=== PATIENT | female | born 1975 | race Caucasian/White ===

== ENCOUNTER 2024-11-08 18:04 | Emergency (ER) | payer OTHER, SELFPAY ==
[2024-11-08 18:26] VITALS: BP 138/85; PULSE 103; TEMP 36.8; O2SAT 97; BMI 36.5
--- NOTE | 2024-11-08 18:32 | XR_ITS ---
The [address] [address] Patient Name: HAWA FELIX MRN: [id number] date: 1975 Sex: F Assigned Patient Location: ED.MAIN Current Patient Location: ED.MAIN Accession/Order Number: [id number] Exam Date: 11/09/2024 08:19 Report Date: 11/09/2024 08:23 At the request of: PAPO CAMPO MD Procedure: XR foot LT min 3V XR foot LT min 3V 11/08/2024 7:24 PM SIGNS AND SYMPTOMS: Left foot pain PROTOCOL: Frontal, lateral, and oblique radiographs of the left foot COMPARISON: None FINDINGS: There is narrowing of the first metatarsophalangeal joint. Erosive changes are noted along the medial margin of the head of the first metatarsal suspicious for a deposition arthropathy. Mild soft tissue swelling is noted diffusely. No fracture or dislocation. XR/XR foot LT min 3V IMPRESSION: No acute bony injury. Mild soft tissue swelling is noted diffusely. Erosive changes are noted along the medial margin of the head of the first metatarsal suspicious for a deposition arthropathy. Impression dictated by: Jt Brizuela M.D. 11/09/2024 8:23 AM Dictation Location: [employer] Electronically authenticated by: [id number] Y Date: 11/09/2024 08:23
--- NOTE | 2024-11-08 19:20 | ED.LOWEXI1 ---
HPI HPI - Extremity Injury (Lower) General Chief Complaint: Extremity Injury, Lower Stated Complaint: LOWER EXTREMITY INJURY Time Seen by Provider: 11/08/24 18:54 Source: patient Mode of arrival: Wheelchair Limitations: no limitations History of Present Illness HPI Narrative: Patient is a 49-year-old female who presents to the emergency department for evaluation of an injury to the left foot. Patient states she has had ongoing issues for the last 6 months with plantar fasciitis and a bunion to her left foot. She has been seen by podiatry multiple times for this. She states that her plantar fasciitis pain has subsided, but in the last 2 weeks she has had an increase in pain to the distal aspect of the foot at the metatarsals. She states she thinks she may be walking differently because of the pain she had in her heel. She states tonight she was gardening with her family member when she felt a snap in the distal foot with taking a step. She states she is unable to bear weight. No concern for . No direct injury or other associated injuries. Related Data Home Medications ?Medication ?Instructions ?Recorded ?Confirmed beclomethasone dipropionate 80 80 mcg inhalation BID 11/08/24 11/08/24 mcg/actuation aerosol inhaler montelukast 10 mg tablet 10 mg PO DAILY 11/08/24 11/08/24 (Singulair) sertraline 100 mg tablet (Zoloft) 200 mg PO DAILY 11/08/24 11/08/24 Previous Rx's ?Medication ?Instructions ?Recorded ketorolac 10 mg tablet 10 mg PO TID PRN pain #10 tabs 11/08/24 Allergies Allergy/AdvReac Type Severity Reaction Status Date / Time No Known Drug Allergies Allergy Verified 11/08/24 18:22 Review of Systems ROS Constitutional Denies: fever or chills Ears, nose, mouth, and throat Denies: throat pain Respiratory Denies: shortness of breath Gastrointestinal Denies: nausea or vomiting Musculoskeletal Reports: extremity pain; Denies: back pain, neck pain, extremity swelling or joint pain Integumentary/Breast Denies: rash Neurological Denies: numbness in extremities or weakness in extremities Hematologic/Lymphatic Denies: easy bruising or easy bleeding PFSH PFSH Social History Little interest or pleasure in doing things: not at all Feeling down, depressed, or hopeless: not at all Exam Narrative Exam Narrative: Gen.: Awake, alert, in no distress Head: Normocephalic, atraumatic ENT: Moist mucous membranes Respiratory: No respiratory distress Extremities: Moves extremities equally, patient is able to flex and extend the toes of the left foot. Sensation is intact to the toes. 2+ left DP pulse. No bony tenderness of the fifth metatarsal. No bony tenderness of the medial or lateral malleolus. Psych: Normal mood and affect Neuro: No focal neuro deficit Skin: Warm, dry, intact Constitutional Vital Signs, click to edit/add: Last Vital Signs Temp 98.3 F 11/08/24 18:26 Pulse 103 H 11/08/24 18:26 Resp 14 11/08/24 18:26 BP 138/85 11/08/24 18:26 Pulse Ox 97 11/08/24 18:26 O2 Del Method Room Air 11/08/24 18:26 Course Vital Signs Vital signs: Vital Signs Temperature 98.3 F 11/08/24 18:26 Pulse Rate 103 H 11/08/24 18:26 Respiratory Rate 14 11/08/24 18:26 Blood Pressure 138/85 11/08/24 18:26 Pulse Oximetry 97 11/08/24 18:26 Oxygen Delivery Method Room Air 11/08/24 18:26 Temperature 98.3 F 11/08/24 18:26 Pulse Rate 103 H 11/08/24 18:26 Respiratory Rate 14 11/08/24 18:26 Blood Pressure 138/85 11/08/24 18:26 Pulse Oximetry 97 11/08/24 18:26 Oxygen Delivery Method Room Air 11/08/24 18:26 MDM - Extremity Injury (Lower) MDM Narrative Medical decision making narrative: X-rays with no evidence of fracture or dislocation. Reviewed by myself and attending physician. Patient is placed in an Tay wrap, postop shoe and she remains neurovascularly intact. Medicated for pain in the ER. She was given crutches as needed for comfort. Rest, ice, elevate. She was given podiatry referral, however she is from the [place] area and has already seen podiatry where she lives. Return to the ER if symptoms change or worsen Medical Records Attestation: I reviewed the patient's medical records. Discharge Plan Discharge Chief Complaint: Extremity Injury, Lower Clinical Impression: Sprain of left foot, Acute pain of left foot Patient Disposition: Home, Self-Care Time of Disposition Decision: 20:21 Condition: Good Prescriptions / Home Meds: New ketorolac 10 mg tablet 10 mg PO TID PRN (Reason: pain) Qty: 10 0RF No Action sertraline [Zoloft] 100 mg tablet 200 mg PO DAILY montelukast [Singulair] 10 mg tablet 10 mg PO DAILY beclomethasone dipropionate 80 mcg/actuation aerosol 80 mcg inhalation BID Print Language: Zambian Instructions: Foot Sprain (ED) Referrals: Physician,Non-Staff, MD [Primary Care Provider] - 1 week Pavel Nelson DPM [Physician, Podiatry] - 1 week
[2024-11-08] MEDS: OXYCODONE HCL/ACETAMINOPHEN 5MG/325MG 1 TAB PO (19:45)
[2024-11-08] MEDS: KETOROLAC TROMETHAMINE 10 MG TABLET PO (19:45)
== END 2024-11-08 20:50 | disposition home or self-care (01) ==
PROVIDERS: Emergency Provider Emergency Medicine
DX: S93.602A Unspecified sprain of left foot, initial encounter (principal); M79.672 Pain in left foot; M72.2 Plantar fascial fibromatosis; M21.612 Bunion of left foot; X58.XXXA Exposure to other specified factors, initial encounter; Y93.H2 Activity, gardening and landscaping
CPT/HCPCS: 73630; 99283